=== PATIENT | male | born 1960 | race Asian ===

== ENCOUNTER 2023-12-14 03:30 | Inpatient (IN) | payer MEDICAID, OTHER ==
[~2023-12-14] VITALS: Ht 167.6 cm; Wt 62.1 kg
[2023-12-14 04:11] LABS: BASOPHILS % (AUTO) 0.2 % (0.0-2.0); EOSINOPHILS # (AUTO) 0.1 K/uL (0.0-0.7); EOSINOPHILS % (AUTO) 0.7 % (0.0-6.0); HEMATOCRIT 41 % (39-51); HEMOGLOBIN 13.4 g/dL (13.5-17.5); LYMPHOCYTES # (AUTO) 1.4 K/uL (0.8-4.8); LYMPHOCYTES % (AUTO) 14.8 % (20.0-44.0); MEAN CORPUSCULAR HEMOGLOBIN 28 PG (26.0-33.0); MEAN CORPUSCULAR HGB CONC 33 g/dl (31.0-36.0); MEAN CORPUSCULAR VOLUME 85 fL (80-96); MONOCYTES # (AUTO) 0.8 K/uL (0.1-1.30); MONOCYTES % (AUTO) 8.4 % (2.0-12.0); NEUTROPHILS # (AUTO) 7.1 K/uL (1.8-8.9); NEUTROPHILS % (AUTO) 75.9 % (43.0-81.0); PLATELET COUNT (AUTO) 223 K/uL (150-450); RED BLOOD CELL COUNT(AUTO) 4.84 MIL/uL (4.5-6.0); RED CELL DISTRIBUTION WIDTH 15.5 % (11.5-15.0); WHITE BLOOD COUNT (AUTO) 9.4 K/uL (4.3-11.0)
[2023-12-14 04:22] LABS: CALCIUM, SERUM 8.8 mg/dL (8.5-10.1); CREATININE 2.1 mg/dL (0.6-1.3); POTASSIUM 4.6 mmol/L (3.5-5.1)
[2023-12-14 04:34] LABS: ALBUMIN 2.9 g/dL (3.4-5.0); BILIRUBIN,TOTAL 0.5 mg/dL (0.2-1.0); TOTAL PROTEIN, SERUM 7.8 g/dL (6.4-8.2)
[2023-12-14 12:00] VITALS: BP 150/97; TEMP 98.2; O2SAT 92
[2023-12-14] MEDS ORDERED: DOCU100C36 PO (12:46)
[2023-12-14] MEDS ORDERED: GLUC1KIT IJ (12:46)
[2023-12-14] MEDS ORDERED: ACET-637 PO (12:46)
[2023-12-14] MEDS ORDERED: PRAV40TA3 PO (12:46)
[2023-12-14] MEDS ORDERED: BISA10SU11 RC (12:46)
[2023-12-14] MEDS ORDERED: FAMO20TA8 GT (12:46)
[2023-12-14] MEDS ORDERED: DEXA2TAB GT (12:46)
[2023-12-14] MEDS ORDERED: MAGN400O6 PO (12:46)
[2023-12-14] MEDS ORDERED: TRAZ-182 PO (12:46)
[2023-12-14] MEDS ORDERED: ACET325T53 PO (12:46)
[2023-12-14] MEDS ORDERED: HEPA50008 SQ (12:46)
[2023-12-14] MEDS ORDERED: NA P133E RC (12:46)
[2023-12-14] MEDS ORDERED: HYDR-4303 GT (12:46)
[2023-12-14] MEDS ORDERED: ATEN25TA GT (12:46)
[2023-12-14] MEDS ORDERED: CLON0.5T4 PO (12:46)
[2023-12-14] MEDS ORDERED: INSU100I30 SQ (12:46)
[2023-12-14] MEDS ORDERED: MELA5TAB GT (12:46)
[2023-12-14] MEDS ORDERED: INSU100V11 SQ ×2 (12:46)
[2023-12-14] MEDS ORDERED: BISACODYL SUPP (10 MG) 10 MG/SUPP.RECT SUPP.RECT RC PRN (13:00)
[2023-12-14] MEDS ORDERED: HYDROCODONE/APAP 5/325MG TABLET GT PRN (13:00)
[2023-12-14] MEDS ORDERED: NA PHOS,M-B/NA PHOS,DI-BA 1 EA ENEMA RC PRN (13:00)
[2023-12-14] MEDS ORDERED: MAGNESIUM HYDROXIDE 30 ML UDC GT PRN (13:00)
[2023-12-14] MEDS ORDERED: ACETAMINOPHEN 650 MG/20.3 ML UDC GT PRN (13:30)
[2023-12-14] MEDS ORDERED: IV 1/2NS 1000 ML 1,000 ML IV PRN (13:30)
[2023-12-14] MEDS ORDERED: GLUCAGON,HUMAN RECOMBINANT 1 MG/VIAL VIAL IM PRN (13:30)
[2023-12-14] MEDS ORDERED: DEXTROSE 50%-WATER 50 ML DISP.SYRIN IV PRN (13:30)
[2023-12-14 16:00] VITALS: BP 161/85; TEMP 98.5; O2SAT 95
[2023-12-14] MEDS: clonazePAM 0.5 MG TABLET GT SCH (16:53)
[2023-12-14] MEDS: FAMOTIDINE (20 MG) 20 MG TABLET GT SCH (16:54)
[2023-12-14] MEDS: GLUCERNA 1.2 1,000 ML BOTTLE NG PRN (17:36)
[2023-12-14] MEDS: BLOOD SUGAR DIAGNOSTIC 1 EACH STRIP IN SCH (18:01)
[2023-12-14] MEDS: INSULIN REGULAR, HUMAN 100 UNIT/ML 3 ML VIAL SQ PRN (18:02)
[2023-12-14 20:00] VITALS: BP 158/90; TEMP 97.8; O2SAT 95
[2023-12-14] MEDS: HEPARIN SODIUM, PORCINE 5000 UNITS/1 ML VIAL SQ SCH (21:06)
[2023-12-14] MEDS: TRAZODONE 50 MG TABLET PO SCH (21:21)
[2023-12-14] MEDS: ATORVASTATIN 10 MG TABLET PO SCH (21:22)
[2023-12-14] MEDS: ATENOLOL 25 MG TABLET GT SCH (21:23)
[2023-12-14] MEDS ORDERED: Medication Not On Formulary EA (Melatonin 5 MG) GT SCH (22:00)
[2023-12-15] VITALS: BP 135/94; TEMP 97; O2SAT 95
[2023-12-15 04:00] VITALS: BP 136/94; TEMP 98; O2SAT 100
[2023-12-15 06:59] LABS: CALCIUM, SERUM 9.3 mg/dL (8.5-10.1); CREATININE 2.2 mg/dL (0.6-1.3); POTASSIUM 4.4 mmol/L (3.5-5.1)
[2023-12-15 07:08] LABS: BASOPHILS % (AUTO) 0.3 % (0.0-2.0); EOSINOPHILS # (AUTO) 0.1 K/uL (0.0-0.7); EOSINOPHILS % (AUTO) 1.3 % (0.0-6.0); HEMATOCRIT 41 % (39-51); HEMOGLOBIN 13.8 g/dL (13.5-17.5); LYMPHOCYTES # (AUTO) 1.2 K/uL (0.8-4.8); LYMPHOCYTES % (AUTO) 14.8 % (20.0-44.0); MEAN CORPUSCULAR HEMOGLOBIN 28 PG (26.0-33.0); MEAN CORPUSCULAR HGB CONC 33 g/dl (31.0-36.0); MEAN CORPUSCULAR VOLUME 85 fL (80-96); MONOCYTES # (AUTO) 0.8 K/uL (0.1-1.30); MONOCYTES % (AUTO) 10.4 % (2.0-12.0); NEUTROPHILS # (AUTO) 5.9 K/uL (1.8-8.9); NEUTROPHILS % (AUTO) 73.2 % (43.0-81.0); PLATELET COUNT (AUTO) 222 K/uL (150-450); RED CELL DISTRIBUTION WIDTH 15.8 % (11.5-15.0); WHITE BLOOD COUNT (AUTO) 8.1 K/uL (4.3-11.0)
[2023-12-15 08:00] VITALS: BP 131/88; TEMP 97.7; O2SAT 100
[2023-12-15] MEDS: DOCUSATE SODIUM LIQ 100 MG/10 ML UDC GT SCH (08:15)
[2023-12-15] MEDS: dexAMETHasone 1 MG/ML UDC GT SCH (08:18)
[2023-12-15] MEDS: INSULIN GLARGINE, 100 UNIT/ML CARTRIDGE SQ SCH (08:21)
[2023-12-15 12:00] VITALS: BP 128/91; TEMP 97.5; O2SAT 99
[2023-12-15 16:00] VITALS: BP 120/88; TEMP 97.3; O2SAT 100
[2023-12-15] MEDS: ACETAMINOPHEN 650 MG/20.3 ML UDC GT PRN (17:09)
[2023-12-15 20:00] VITALS: BP 125/89; TEMP 97.5; O2SAT 96
[2023-12-16] VITALS: BP 142/90; TEMP 97.7; O2SAT 96
[2023-12-16 04:00] VITALS: BP 131/89; TEMP 97.9; O2SAT 97
[2023-12-16 07:47] LABS: CALCIUM, SERUM 8.8 mg/dL (8.5-10.1); CREATININE 2.4 mg/dL (0.6-1.3); POTASSIUM 4.2 mmol/L (3.5-5.1)
[2023-12-16 08:00] VITALS: BP 143/95; TEMP 98.2; O2SAT 98
[2023-12-16 08:02] LABS: BASOPHILS % (AUTO) 0.2 % (0.0-2.0); EOSINOPHILS # (AUTO) 0.2 K/uL (0.0-0.7); EOSINOPHILS % (AUTO) 1.9 % (0.0-6.0); HEMATOCRIT 40 % (39-51); HEMOGLOBIN 13.5 g/dL (13.5-17.5); LYMPHOCYTES # (AUTO) 1.3 K/uL (0.8-4.8); MEAN CORPUSCULAR HEMOGLOBIN 28 PG (26.0-33.0); MEAN CORPUSCULAR HGB CONC 33 g/dl (31.0-36.0); MEAN CORPUSCULAR VOLUME 85 fL (80-96); MONOCYTES # (AUTO) 0.8 K/uL (0.1-1.30); MONOCYTES % (AUTO) 9.4 % (2.0-12.0); NEUTROPHILS % (AUTO) 72.5 % (43.0-81.0); PLATELET COUNT (AUTO) 217 K/uL (150-450); RED BLOOD CELL COUNT(AUTO) 4.74 MIL/uL (4.5-6.0); WHITE BLOOD COUNT (AUTO) 8.3 K/uL (4.3-11.0)
[2023-12-16 12:00] VITALS: BP 131/89; TEMP 98; O2SAT 99
[2023-12-16 16:00] VITALS: BP 149/90; TEMP 98.1; O2SAT 99
[2023-12-16 20:00] VITALS: BP 141/91; TEMP 98.7; O2SAT 97
[2023-12-17] VITALS: BP 139/90; TEMP 98.4; O2SAT 97
[2023-12-17 04:00] VITALS: BP 140/90; TEMP 98.3; O2SAT 98
[2023-12-17 08:00] VITALS: BP 158/95; TEMP 98; O2SAT 98
[2023-12-17] MEDS ORDERED: CLONIDINE HCL 0.1 MG TABLET PEG PRN (09:00)
[2023-12-17] MEDS: INSULIN GLARGINE, 100 UNIT/ML CARTRIDGE SQ SCH (09:14)
[2023-12-17 12:00] VITALS: BP 141/82; TEMP 98.2; O2SAT 98
[2023-12-17 16:00] VITALS: BP 140/95; TEMP 98; O2SAT 98
== END 2023-12-17 21:09 | DRG 55 ==
LOC: ER 03:31 → TELE1 12:00
PROVIDERS: ADMIT Internal Medicine; ATTEND Internal Medicine
DX: S06.35AA Traumatic hemorrhage of left cerebrum with loss of consciousness status unknown, initial encounter (principal); G93.6 Cerebral edema; N17.9 Acute kidney failure, unspecified; E11.22 Type 2 diabetes mellitus with diabetic chronic kidney disease; I12.9 Hypertensive chronic kidney disease with stage 1 through stage 4 chronic kidney disease, or unspecified chronic kidney disease; W06.XXXA Fall from bed, initial encounter; Y92.9 Unspecified place or not applicable; N18.30 Chronic kidney disease, stage 3 unspecified; Z66 Do not resuscitate; Z20.822 Contact with and (suspected) exposure to COVID-19; K21.9 Gastro-esophageal reflux disease without esophagitis; E78.5 Hyperlipidemia, unspecified; F32.A Depression, unspecified; Z79.4 Long term (current) use of insulin; Z79.899 Other long term (current) drug therapy; Z79.01 Long term (current) use of anticoagulants; Z90.5 Acquired absence of kidney; Z93.1 Gastrostomy status; Z85.528 Personal history of other malignant neoplasm of kidney; R13.10 Dysphagia, unspecified; J98.4 Other disorders of lung; N28.89 Other specified disorders of kidney and ureter
CPT/HCPCS: 36415; 70450-TC; 70551-TC; 71045-TC; 80048-TC; 80053-TC; 82962-TC; 83880; 84484-TC; 85025-TC; 87081-TC; G0378; J1644; J1815; J7030; J8540

== ENCOUNTER 2024-10-06 18:09 | Emergency (ER) | payer MEDICAID ==
[~2024-10-06] VITALS: Ht 157.5 cm; Wt 64.9 kg
[~2024-10-06 18:09] MED LIST: ACET-637 PO; ACET325T53 PO; ATEN25TA GT; BISA10SU11 RC; CLON0.5T4 PO; DEXA2TAB GT; DOCU100C36 PO; FAMO20TA8 GT; GLUC1KIT IJ; HEPA50008 SQ; HYDR-4303 GT; INSU100I30 SQ; INSU100V11 SQ; MAGN400O6 PO; MELA5TAB GT; NA P133E RC; PRAV40TA3 PO; TRAZ-182 PO
[2024-10-06 18:17] VITALS: BP 139/76; TEMP 98.1; O2SAT 98
[2024-10-06 18:40] LABS: BASOPHILS % (AUTO) 0.4 % (0.0-2.0); EOSINOPHILS # (AUTO) 0.5 K/uL (0.0-0.7); EOSINOPHILS % (AUTO) 8.2 % (0.0-6.0); HEMATOCRIT 33 % (39-51); HEMOGLOBIN 10.7 g/dL (13.5-17.5); LYMPHOCYTES # (AUTO) 0.8 K/uL (0.8-4.8); LYMPHOCYTES % (AUTO) 12.9 % (20.0-44.0); MEAN CORPUSCULAR HEMOGLOBIN 26 PG (26.0-33.0); MEAN CORPUSCULAR HGB CONC 32 g/dl (31.0-36.0); MEAN CORPUSCULAR VOLUME 80 fL (80-96); MONOCYTES # (AUTO) 0.5 K/uL (0.1-1.30); MONOCYTES % (AUTO) 7.8 % (2.0-12.0); NEUTROPHILS # (AUTO) 4.3 K/uL (1.8-8.9); NEUTROPHILS % (AUTO) 70.7 % (43.0-81.0); PLATELET COUNT (AUTO) 212 K/uL (150-450); RED BLOOD CELL COUNT(AUTO) 4.12 MIL/uL (4.5-6.0); RED CELL DISTRIBUTION WIDTH 15.8 % (11.5-15.0); WHITE BLOOD COUNT (AUTO) 6.1 K/uL (4.3-11.0)
[2024-10-06 18:49] LABS: CALCIUM, SERUM 8.7 mg/dL (8.5-10.1); CARBON DIOXIDE 26 mmol/L (21-32); CHLORIDE 103 mmol/L (98-107); CREATININE 2.4 mg/dL (0.6-1.3); GLUCOSE 132 mg/dL (74-106); POTASSIUM 4.3 mmol/L (3.5-5.1); SODIUM SERUM 139 mmol/L (136-145); UREA NITROGEN, BLOOD 28 mg/dL (7-18)
[2024-10-06 18:55] LABS: INR 0.99 (0.91-1.10); PARTIAL THROMBOPLASTIN TIME 28.8 SEC (24.3-34.3); PROTHROMBIN TIME 10.5 SECS (9.2-11.1)
[2024-10-06 19:02] LABS: ALANINE AMINOTRANSFERASE 16 U/L (12-78); ALBUMIN 3.3 g/dL (3.4-5.0); ALCOHOL, BLOOD < 3 mg/dL (0-10); ALKALINE PHOSPHATASE 132 U/L (46-116); ASPARTATE AMINOTRANSFERASE 20 U/L (15-37); BILIRUBIN,DIRECT 0.1 mg/dL (0.0-0.2); BILIRUBIN,TOTAL 0.3 mg/dL (0.2-1.0); TOTAL PROTEIN, SERUM 7.7 g/dL (6.4-8.2)
[2024-10-06] MEDS ORDERED: LEVETIRACETAM (500MG) 500 MG/5 ML VIAL IV ONE (19:23)
[2024-10-06] MEDS: LEVETIRACETAM (500MG) 500 MG in IV NS 0.9% 100 ML IV STA (19:24)
== END 2024-10-06 21:23 ==
LOC: ER 18:11
DX: R56.9 Unspecified convulsions (principal); E11.22 Type 2 diabetes mellitus with diabetic chronic kidney disease; F32.A Depression, unspecified; I12.9 Hypertensive chronic kidney disease with stage 1 through stage 4 chronic kidney disease, or unspecified chronic kidney disease; K21.9 Gastro-esophageal reflux disease without esophagitis; N18.9 Chronic kidney disease, unspecified; Z79.4 Long term (current) use of insulin; Z79.52 Long term (current) use of systemic steroids; Z79.899 Other long term (current) drug therapy; Z86.73 Personal history of transient ischemic attack (TIA), and cerebral infarction without residual deficits
CPT/HCPCS: 99285; 96365; 93005; 71045; 70450; 85025; 80048; 80076; 36415; 85730; 82962; 80320; J7030 ×2; J1953 ×2; G0480